=== PATIENT | female | born 1970 | race Caucasian/White ===

== ENCOUNTER 2019-09-28 18:52 | Emergency (ER) | payer OTHER ==
[~2019-09-28] VITALS: Ht 162.5 cm; Wt 109.3 kg
[2019-09-28] MEDS ORDERED: Motrin,Rufen800 MG PO (19:36)
[2019-09-28] MEDS ORDERED: AUGMENTIN 875-875 MG PO (19:36)
== END 2019-09-28 20:43 | disposition home or self-care (01) ==
LOC: ED 18:52
DX: H66.91 Otitis media, unspecified, right ear (principal); H60.91 Unspecified otitis externa, right ear